=== PATIENT | male | born 1985 | race Caucasian/White ===

== ENCOUNTER 2020-10-21 09:55 | Emergency (ER) | payer OTHER | END 2020-10-21 12:19 | disposition home or self-care (01) | LOC: ER1 09:55 | DX: U07.1 COVID-19 (principal); F17.210 Nicotine dependence, cigarettes, uncomplicated | CPT/HCPCS: 0240U; 87081; 87880; 99283 ==

== ENCOUNTER 2021-11-24 23:52 | Emergency (ER) | payer OTHER ==
[2021-11-25] MEDS ORDERED: AMOX TR-K CLV1 EAC4 PO (03:15)
== END 2021-11-25 04:00 | disposition home or self-care (01) ==
LOC: ER1 23:52
DX: K05.10 Chronic gingivitis, plaque induced (principal); K05.6 Periodontal disease, unspecified; F17.200 Nicotine dependence, unspecified, uncomplicated
CPT/HCPCS: 99283